=== PATIENT | female | born 1990 | race Caucasian/White ===

== ENCOUNTER 2018-08-19 10:04 | Inpatient (IN) | payer BC ==
[2018-08-19] MEDS ORDERED: Sodium Chloride 0.9% 10 ML Syringe FLUSH PRN (10:26)
[2018-08-19] MEDS ORDERED: Nalbuphine 20 MG/ML 1 ML Syringe IVPUSH PRN (10:26)
--- NOTE | 2018-08-19 10:39 | PCM.LDHP ---
L&D History of Present Illness - General Date of Service: 08/19/18 Admit Problem/Dx: Patient Status Order with Admit Dx/Problem 08/19/18 10:26 Patient Status [ADT] Routine Admission Diagnosis/Problem Admission Diagnosis/Problem 08/19/18 10:29 Elsi is a 28-year-old 2 para 1001 white female who is admitted for elective induction of labor due to distance from the hospital. She lives in [facility]. She has an ZOHAIB of 08/24/2018 is based upon a certain last menstrual period starting 11/17/2017 and supported by 3 ultrasounds done on 2017, 01/26/2018 and 04/08/2018. The procedure of elective induction of labor, its risks, benefits and alternatives are discussed in detail patient. On last evaluation in clinic her cervix was 2 cm dilated, 60% effaced, soft, posterior, -3 station. Patient is to be induced with artificial rupture membranes/Pitocin. 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 Her certain last menstrual start 11/17/2017. She had menarche approximately age 12-13.Patient had 28 day cycles. Not using any control time conception. Last menstrual cycle was relatively certain. She denies any STI's or abnormal Pap smears in the past. Last delivery was a male infant born on [birth year]18/2014 at 39-1/7 weeks gestational age after 12 hours of labor. Weight was 8 lbs. 11 oz. Patient had epidural at that time. Child's name is Raymundo Capellan. course was relatively unremarkable. visit was on 01/26/2018 at 10 weeks gestational age. [place] for she gained approximately 31.4 pounds weight from 141-172.4 pounds. Her fundal height growth was appropriate and vital signs remained stable throughout the course. Patient desires epidural. She had a flu shot at [facility] in December 2017. Group B strep screen is negative. She plans to breast-feed. Laboratory testing and shows blood to be B+. Antibody screen is negative. First hemoglobin is 15.9 g/dL. Platelets are 215,000. Rubella titer shows immunity. Her RPR is nonreactive Hepatitis B surface antigen and HIV assays were both negative as were Chlamydia and gonorrhea tests. Second trimester labs showed hemoglobin 13.0 g/dL. Platelets 190,000. One-hour GTT was 104 mg/dL. Group B strep screen was negative. Allergies: none Medications: 1. vitamins daily Past medical history: 1. Infertility with intrauterine insemination with 's semen April 2015. Past surgical history: 1. Arthroscopic ACL reconstruction on both knees. Family history: Mother is alive with hypertension. Father is alive and well. 3 brothers alive and well. Maternal grandmother is secondary lung cancer was a smoker. Maternal grandfather is alive and well. Paternal grandmother is alive and well. Paternal grandfather secondary to suicide. No clotting , anesthesia, bleeding or problems noted. Social history:. She lives in [facility]. She does not use any significant loss of alcohol, drugs or tobacco. is Herman Marie. Review of systems: In general patient has no complaints. Baby has been active. No significant contractions noted. Skin: Negative Lungs: No infectious symptoms or shortness of breath Cardiovascular: No chest pain or exercise intolerance Breasts: No lumps, changes in size, pain, dimpling, discharge or axillary or supraclavicular concerns. GI: Negative : Negative Musculoskeletal: Negative Neurological: Negative Physical exam: Blood pressure on last evaluation clinic was 136/58. Weight was 172.4 pounds. heart rate was 132. Patient's height is 5 feet 6 inches. Pregravid weight was 141. Pregravid BMI was 21.9. In general the patient is well-developed, well-nourished, pleasant female of stated age in no acute distress. Skin is warm dry without lesions. HEENT, neck and back within normal limits. Lungs are clear with good breath sounds in all lung [place]. Cardiovascular exam shows regular and rhythm without murmurs. Breast exam is deferred at this time having been done on first visit and found to be normal. Patient does plan to breast. Abdomen is gravid with fundal height of 37 cm on last evaluation clinic. Baby in vertex presentation. Genital examplease see above. Extremities and neurological exam are grossly within normal limits. - Related Data Allergies/Adverse Reactions: Allergies Allergy/AdvReac Type Severity Reaction Status Date / Time No Known Allergies Allergy Verified 05/08/16 08:10 Home Medications: Home Meds Pnv No.122/Iron/Folic Acid [ Multi Tablet] 1 each PO DAILY 05/08/16 [ History] Acetaminophen [Tylenol] 650 mg PO Q6H PRN #0 tablet 05/10/16 [Rx] Benzocaine/Menthol [Dermoplast Pain Relief [place]] 1 spray TOP ASDIRECTED PRN #0 canister 05/10/16 [Rx] Docusate Sodium [Colace] 100 mg PO BID PRN #0 cap 05/10/16 [Rx] Ibuprofen [IJD: Ibuprofen] 200 - 600 mg PO Q6H PRN #0 tablet 05/10/16 [Rx] Witandres Adrianne [Tucks] 1 pad TOP ASDIRECTED PRN #0 pad 05/10/16 [Rx] Past Medical History 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 History: Reports: - Past Surgical History Musculoskeletal Surgical History: Reports: Arthroscopic Procedure, Other (See Below) Social & Family History - Family History Family Medical History: Noncontributory - Caffeine Use Caffeine Use: Reports: None H&P Review of Systems - Review of Systems: Review Of Systems: See Below L&D Exam - Exam Exam: See Below Problem List Initiated/Reviewed/Updated: Yes Orders Last 24hrs: Active Orders 24 hr Category Date Time Status Patient Status [ADT] Routine ADT 08/19/18 10:26 Ordered Activity as Tolerated [RC] PFP Care 08/19/18 10:26 Ordered Communication Order [RC] ASDIRECTED Care 08/19/18 10:26 Ordered Heart Tones [RC] ASDIRECTED Care 08/19/18 10:27 Ordered Non Stress Test [RC] PER UNIT ROUTINE Care 08/19/18 10:26 Ordered Notify Provider [RC] PFP Care 08/19/18 10:26 Ordered Notify Provider [RC] PRN Care 08/19/18 10:26 Ordered Peripheral IV Care [RC] . DIRECTED Care 08/19/18 10:27 Ordered Pump Management, Intrathecal [RC] ASDIRECTED Care 08/19/18 10:28 Ordered Vital Signs [RC] PER UNIT ROUTINE Care 08/19/18 10:26 Ordered Regular Diet [DIET] Diet 08/19/18 Lunch Ordered CBC W/O DIFF,HEMOGRAM [HEME] Stat Lab 08/19/18 10:26 Ordered RAPID PLASMA REAGIN,RPR [CHEM] Routine Lab 08/19/18 10:26 Ordered Lactated Ringers [Ringers, Lactated] 1,000 ml Med 08/19/18 10:30 Ordered IV ASDIRECTED Lidocaine 1% [Xylocaine 1%] Med 08/19/18 10:26 Once 10 ml INJECT ONETIME ONE Nalbuphine [Nubain] Med 08/19/18 10:26 Ordered 10 mg IVPUSH Q2H PRN Sodium Chloride 0.9% [Saline Flush] Med 08/19/18 10:26 Ordered 10 ml FLUSH ASDIRECTED PRN Electronic Heart Tones Ext w TOCO [WOMSER] Ot 08/19/18 10:26 Ordered Routine Electronic Heart Tones Internal [WOMSER] Per Unit Ot 08/19/18 10:26 Ordered Routine Peripheral IV Insertion Adult [OM.PC] Routine Ot 08/19/18 10:26 Ordered Resuscitation Status Routine Resus Stat 08/19/18 10:26 Ordered Assessment/Plan Comment:: 1. 39-2/7 week intrauterine , admitted for elective induction of labor due to distance from the hospital. 2. Group B strep screen positive. 3. Rubella immune 4. Patient plans to breast-feed 5. Patient desires epidural in labor. Plan: 1. Artificial rupture membranes/Pitocin induction of labor was, benefits, alternatives of care discussed with patient detail. She appears understand and wishes to proceed 2. Epidural when necessary for analgesia in labor 3. Support Breast-feeding decision 4. CBC and RPR on admission per protocol 5. Anticipate normal spontaneous vaginal delivery.
[2018-08-19] MEDS ORDERED: Lidocaine 1% 50 ML MDV INJECT ONE (13:00)
[2018-08-19] MEDS ORDERED: fentaNYL 100 MCG/2 ML SDV EPIDUR PRN (13:52)
[2018-08-19] MEDS ORDERED: ePHEDrine 50 MG/ML SDV IVPUSH PRN (13:52)
[2018-08-19] MEDS ORDERED: Ondansetron 4 MG/2 ML SDV IVPUSH PRN (13:52)
--- NOTE | 2018-08-19 13:57 | PCM.PREANE ---
Preanesthetic Assessment - Anesthesia/Transfusion/Family Hx Anesthesia History: Prior Anesthesia Without Reaction Type of Anesthesia Reaction: Excessive Nausea/Vomiting Family History of Anesthesia Reaction: No Transfusion History: No Prior Transfusion(s) Intubation History: Unknown - Review of Systems General: No Symptoms Pulmonary: No Symptoms Cardiovascular: No Symptoms Gastrointestinal: No Symptoms (GERD with PG.) Neurological: No Symptoms, Headache (Migraines ) Other: Reports: None - Physical Assessment NPO Status Date: 08/19/18 NPO Status Time: 10:00 Pulse: 101 O2 Sat by Pulse Oximetry: 99 Respiratory Rate: 17 Blood Pressure: 129/81 Temperature: 36.9 C Vital Signs: Last Vital Signs Temp 36.9 C 08/19/18 12:12 Pulse 101 H 08/19/18 12:43 Resp 17 08/19/18 12:12 BP 129/81 08/19/18 12:12 Pulse Ox 99 08/19/18 12:12 Height: 1.68 m Weight: 78.109 kg ASA Class: 2 Mental Status: Alert & Oriented x3 Airway Class: Mallampati = 1 Dentition: Reports: Normal Dentition, Caries Thyro-Mental Finger Breadths: 3 Mouth Opening Finger Breadths: 3 ROM/Head Extension: Full Lungs: Clear to Auscultation, Normal Respiratory Effort Cardiovascular: Regular Rate, Regular Rhythm, No Murmurs - Lab Values: Laboratory Last Values WBC 9.25 K/mm3 (3.98-10.04) 08/19/18 12:20 RBC 4.82 M/mm3 (3.98-5.22) 08/19/18 12:20 Hgb 11.9 gm/L (11.2-15.7) 08/19/18 12:20 Hct 36.3 % (34.1-44.9) 08/19/18 12:20 MCV 75.3 fl (79.4-94.8) L 08/19/18 12:20 MCH 24.7 pg (25.6-32.2) L 08/19/18 12:20 MCHC 32.8 g/dl (32.2-35.5) 08/19/18 12:20 RDW Std Deviation 37.8 fL (36.4-46.3) 08/19/18 12:20 Plt Count 228 K/mm3 (182-369) 08/19/18 12:20 MPV 10.2 fl (9.4-12.3) 08/19/18 12:20 All labs reviewed and noted and within acceptable ranges to proceed with epidural if desired. 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 TANNER History: Reports: - Past Surgical History Musculoskeletal Surgical History: Reports: Arthroscopic Procedure, Other (See Below) Other Musculoskeletal Surgeries/Procedures:: ACL reconstruction both knees - SUBSTANCE USE Smoking Status *Q: Never Smoker Recreational Drug Use History: No - HOME MEDS Home Medications: Home Meds PNV95/Ferrous Fumarate/FA [ Vitamin Tablet] 1 tab PO DAILY 08/19/18 [ History] - CURRENT (IN HOUSE) MEDS Current Meds: Current Medications Ephedrine Sulfate (Ephedrine Sulfate) 5 mg IVPUSH ASDIRECTED PRN PRN Reason: Hypotension Fentanyl (Sublimaze) 100 mcg EPIDUR Q3H PRN PRN Reason: Pain Fentanyl/Bupivacaine HCl (Fentanyl/Bupivacaine/Ns 2 Mcg-0.125% 100 Ml) 100 ml EPIDUR ASDIRECTED JUANI Lactated Ringer's (Ringers, Lactated) 1,000 mls @ 100 mls/hr IV ASDIRECTED JUANI Phenylephrine HCl 1 mg/ Sodium (Chloride) 10.1 mls @ 1 mls/sec IV TITRATE JUANI; Protocol Nalbuphine HCl (Nubain) 10 mg IVPUSH Q2H PRN PRN Reason: pain Ondansetron HCl (Zofran) 4 mg IVPUSH ONETIME PRN PRN Reason: Nausea/Vomiting Sodium Chloride (Saline Flush) 10 ml FLUSH ASDIRECTED PRN PRN Reason: Keep Vein Open Discontinued Medications Lidocaine HCl (Xylocaine 1%) 10 ml INJECT ONETIME ONE Stop: 08/19/18 13:01
[2018-08-19] MEDS ORDERED: Phenylephrine 1 MG in Sodium Chloride 0.9% 10 ML IV SCH (14:00)
[2018-08-19] MEDS ORDERED: Bupivacaine/fentaNYL/NS 100 ML Bag EPIDUR SCH (14:00)
[2018-08-19] MEDS ORDERED: Oxytocin/Lactated Ringers 10 UNIT/1,000 ML BAG IV SCH (15:15)
[2018-08-19] MEDS: Lactated Ringers 1,000 ML IV SCH ×2 (15:35→17:18)
--- NOTE | 2018-08-19 20:11 | PCM.SN ---
- Free Text/Narrative Note: Delivery note: Elsi is a 28-year-old 2 now para 2002 white female who is admitted midday on 08/19/2018 at 39-2/7 weeks with an ZOHAIB of 08/16/2018 for elective induction of labor for distance from the hospital. Patient lives in [place], [place]. She underwent artificial rupture membranes induction and Pitocin augmentation. She rapidly moved to complete cervical dilation by approximately 1930 hrs. She had an epidural placed for labor analgesia. At 1942 hrs. on 2018 patient delivered a viable, hanna, male infant with Apgars of 8 and 9, a weight of 8 pounds 9.9 ounces (3910 g) and a left occiput anterior position. The baby's ankles 22.5 inches. Patient had a small first-degree perineal laceration. This was repaired with short running suture of 3-0 Monocryl. Labor analgesia was used for perineal laceration repair anesthesia. The patient received Pitocin IV after delivery to facilitate increase uterine tone and decreased likelihood of bleeding. The umbilical cord had 3 vessels. The placenta delivered in a Glover fashion, appeared intact and complete and was discarded per patient desire. Assessment we 'll loss was 200 mL. She plans to breast-feed. Condition: Good.
[2018-08-19] MEDS ORDERED: Lanolin 100% Cream 7 GM Tube TOP PRN (20:20)
[2018-08-19] MEDS ORDERED: Benzocaine/Menthol 20%-0.5% Spray 56 GM Canister TOP PRN (20:20)
[2018-08-19] MEDS ORDERED: Witch Hazel Medicated Pads 40/Jar TOP PRN (20:20)
[2018-08-19] MEDS ORDERED: Docusate Sodium 100 MG Cap PO PRN (20:20)
[2018-08-19] MEDS ORDERED: Acetaminophen 325 MG Tab PO PRN (20:20)
[2018-08-19] MEDS: Ibuprofen 600 MG Tab PO PRN (20:30)
[2018-08-19] MEDS ORDERED: Bupivacaine 0.25% 10 ML SDV ONE (22:00)
[2018-08-20] MEDS: Ibuprofen 600 MG Tab PO PRN ×2 (01:09→05:25)
[2018-08-20] MEDS ORDERED: Prenatal Multivitamin with Calcium/Folic Acid/Iron Tab PO SCH (09:00)
--- NOTE | 2018-08-20 14:09 | PCM.DCSUM1 ---
Discharge Summary - Hospital Course Free Text/Narrative:: Elsi is a 28-year-old 2 now para 2002 white female who is admitted midday on 08/19/2018 at 39-2/7 weeks with an ZOHAIB of 08/16/2018 for elective induction of labor for distance from the hospital. Patient lives in [place], [place]. She underwent artificial rupture membranes induction and Pitocin augmentation. She rapidly moved to complete cervical dilation by approximately 1930 hrs. She had an epidural placed for labor analgesia. At 1942 hrs. on 2018 patient delivered a viable, hanna, male infant with Apgars of 8 and 9, a weight of 8 pounds 9.9 ounces (3910 g) and a left occiput anterior position. The baby's ankles 22.5 inches. Patient had a small first-degree perineal laceration. This was repaired with short running suture of 3-0 Monocryl. Labor analgesia was used for perineal laceration repair anesthesia. The patient received Pitocin IV after delivery to facilitate increase uterine tone and decreased likelihood of bleeding. The umbilical cord had 3 vessels. The placenta delivered in a [place] fashion, appeared intact and complete and was discarded per patient desire. Assessment we 'll loss was 200 mL. She plans to breast-feed. patient was done well. She is ambulating well, has minimal lochia and is nursing without problems. She is desiring discharge home as soon as possible. Condition is good. Diagnosis: Stroke: No - Discharge Data Discharge Date: 08/20/18 Discharge Disposition: Home, Self-Care 01 Condition: Good - Patient Instructions Diet: Regular Diet as Tolerated (Nursing diet with increased calories and calcium is recommended.) Activity: As Tolerated (No intercourse or tampons until bleeding resolves.) Driving: May Drive Today Showering/Bathing: May Shower (May take a bath) Notify Provider of: Fever, Increased Pain, Swelling and Redness, Nausea and/or Vomiting - Discharge Plan Home Medications: Home Meds PNV95/Ferrous Fumarate/FA [ Vitamin Tablet] 1 tab PO DAILY 08/19/18 [ History] Acetaminophen [Tylenol] 650 mg PO Q4H PRN tablet 08/20/18 [Rx] Ibuprofen [Motrin] 600 mg PO Q4H PRN tablet 08/20/18 [Rx] Referrals: Martin Harvey MD [Primary Care Provider] - (Return to clinicDr. Harvey2 weeks.) - Discharge Summary/Plan Comment DC Time >30 min.: No Discharge Summary/Plan Comment: Discharge instructions: 1. Discharge home 2. Diet, activity and follow-up discussed with patient. Recommend nursing diet with increased calories and calcium. 3. Precautions given concern increased pain, bleeding, temperature, signs/ symptoms of DVT/PE. 4. Medications per home medication was printed, discussed with and given to the patient. 5. Return to clinic-Dr. Harvey[facility] in 2 weeks. Diagnosis: Term -delivered Condition: Good - Patient Data Vitals - Most Recent: Last Vital Signs Temp 37.2 C 08/20/18 09:10 Pulse 88 08/20/18 09:10 Resp 12 08/20/18 09:10 BP 108/61 08/20/18 09:10 Pulse Ox 98 08/20/18 09:10 Weight - Most Recent: 78.109 kg I&O - Last 24 hours: Intake & Output 08/19/18 08/20/18 08/20/18 22:59 06:59 14:59 Intake Total 2300 120 Balance 2300 120 Lab Results - Last 24 hrs: Laboratory Results - last 24 hr 08/19/18 Range/Units 12:20 RPR Non-reactive (NONREACTIVE) Med Orders - Current: Current Medications Acetaminophen (Tylenol) 650 mg PO Q4H PRN PRN Reason: mild pain or fever Benzocaine/Menthol (Dermoplast Pain Relief [place]) 0 gm TOP ASDIRECTED PRN PRN Reason: Perineal Comfort Measure Last Admin: 08/20/18 01:06 Dose: 1 can Docusate Sodium (Colace) 100 mg PO BID PRN PRN Reason: Constipation Emollient Ointment (Lansinoh Hpa) 0 gm TOP ASDIRECTED PRN PRN Reason: Sore Nipples Last Admin: 08/20/18 01:10 Dose: 1 applicful Ibuprofen (Motrin) 600 mg PO Q4H PRN PRN Reason: Mild pain or fever Last Admin: 08/20/18 05:25 Dose: 600 mg Prenat Multivit/Fuel Cell Systems Engineer/Iron/Folic Ac ( Plus Iron) 1 each PO DAILY JUANI Last Admin: 08/20/18 11:06 Dose: 1 each Amanda Silver ([place]ominick) 1 pad TOP ASDIRECTED PRN PRN Reason: Pain Last Admin: 08/20/18 01:06 Dose: 1 carton Discontinued Medications Bupivacaine HCl (Sensorcaine-Mpf 0.25%) 10 ml .ROUTE .STK-MED ONE Stop: 08/19/18 22:01 Ephedrine Sulfate (Ephedrine Sulfate) 5 mg IVPUSH ASDIRECTED PRN PRN Reason: Hypotension Fentanyl (Sublimaze) 100 mcg EPIDUR Q3H PRN PRN Reason: Pain Last Admin: 08/19/18 17:35 Dose: 100 mcg Fentanyl/Bupivacaine HCl (Fentanyl/Bupivacaine/Ns 2 Mcg-0.125% 100 Ml) 100 ml EPIDUR ASDIRECTED JUANI Last Admin: 08/19/18 17:33 Dose: 100 ml Lactated Ringer's (Ringers, Lactated) 1,000 mls @ 100 mls/hr IV ASDIRECTED JUANI Last Admin: 08/19/18 17:18 Dose: 100 mls/hr Phenylephrine HCl 1 mg/ Sodium (Chloride) 10.1 mls @ 1 mls/sec IV TITRATE JUANI; Protocol Oxytocin/Lactated Ringer's (Pitocin In Lr 10 Units/1,000 Ml) 10 unit in 1,000 mls @ 12 mls/hr IV TITRATE JUANI; Protocol Last Titration: 08/19/18 20:45 Dose: Infused Lidocaine HCl (Xylocaine 1%) 10 ml INJECT ONETIME ONE Stop: 08/19/18 13:01 Last Admin: 08/20/18 06:06 Dose: Not Given Nalbuphine HCl (Nubain) 10 mg IVPUSH Q2H PRN PRN Reason: pain Ondansetron HCl (Zofran) 4 mg IVPUSH ONETIME PRN PRN Reason: Nausea/Vomiting Sodium Chloride (Saline Flush) 10 ml FLUSH ASDIRECTED PRN PRN Reason: Keep Vein Open
[2018-08-20 22:27] VITALS: BP 125/73
== END 2018-08-20 21:31 | disposition home or self-care (01) | DRG 560 ==
LOC: JD.OB 12:59 → OBSVTOIN 19:42 → JD.OB 19:42
PROVIDERS: ADMIT Obstetrics & Gynecology; ATTEND Obstetrics & Gynecology
PROC: 10E0XZZ Delivery of Products of Conception, External Approach (ICD-10-PCS; principal; 2018-08-19)
PROC: 0HQ9XZZ Repair Perineum Skin, External Approach (ICD-10-PCS; 2018-08-19)
PROC: 10907ZC Drainage of Amniotic Fluid, Therapeutic from Products of Conception, Via Natural or Artificial Opening (ICD-10-PCS; 2018-08-19)
PROC: 3E033VJ Introduction of Other Hormone into Peripheral Vein, Percutaneous Approach (ICD-10-PCS; 2018-08-19)
DX: O70.0 First degree perineal laceration during delivery (principal); Z3A.39 39 weeks gestation of pregnancy; Z37.0 Single live birth
CPT/HCPCS: 36415; 59025; 59409; 85027; 86592; A9270-GY; J2590; J3010; J3490; J7120